=== PATIENT | female | born 1945 | race Caucasian/White ===

== ENCOUNTER 2022-07-01 11:23 | Inpatient (IN) ==
[2022-07-01] MEDS ORDERED: ACETAMINOPHEN 325 MG TABLET PO ONE (12:36)
[2022-07-01] MEDS ORDERED: ALBUTEROL 2.5 MG/3 ML NEB RESP TX STA (14:34)
[2022-07-01 14:37] LABS: Basophils # 0.1 10*3/uL (0.0-0.2); Basophils % 0.5 % (0.0-0.8); Eosinophils % 0.2 % (0.00-10.9); Hemoglobin 10.7 GM/DL (12.0-16.0); Immature Granulocytes % 0.6 %; Immature Granulocytes Absolute 0.07 #; Lymphocytes # 0.8 10*3/uL (1.4-4.0); Lymphocytes % 6.1 % (21.3-54.2); Mean Corpuscular HGB Conc 32.4 GM/DL (32-36); Mean Corpuscular Volume 90.9 FL (87-102); Mean Platelet Volume 11.1 FL (9.6-12.0); Monocytes # 1.2 10*3/uL (0.11-0.8); Monocytes % 9.5 % (1.7-12.7); Neutrophils % 83.1 % (38.7-73.9); Platelet Count 255 T/CUMM (130-400); Red Blood Count 3.63 MC/CUMM (3.8-5.5); Red Cell Distribution Width 13.6 % (9.3-17.3); White Blood Count 12.4 T/CUMM (4-12)
[2022-07-01 14:41] LABS: Bacteria,Urine Occasional /HPF (Few); Bilirubin,Urine Negative (Negative); Blood, Urine Negative (Negative); Glucose,Urine (UA) Negative (Negative); Hyaline Casts,Urine 3 /LPF (0-3); Ketones,Urine Trace mg/dL (Negative); Mucus,Urine Occasional /LPF (Occasional); Nitrite,Urine Negative (Negative); Protein,Urine 30 mg/dL (Negative); Squamous Epithelial Cell,Urine Occasional /HPF (0-10); Urine Appearance Clear (Clear); Urine Color Yellow (Yellow); Urine Specific Gravity 1.025 (1.001-1.035); Urine Urobilinogen 0.2 eU/dL (<2.0); Urine pH 5.5 (4.5-8.0)
[2022-07-01 14:58] LABS: Albumin 3.6 G/DL (3.4-5.0); Calcium 8.6 MG/DL (8.5-10.1); Osmolality,Calculated 266.5 MOS/KG (273-304); Potassium 3.1 MMOL/L (3.5-5.1); Total Protein 7.3 G/DL (6.4-8.2)
[2022-07-01] MEDS ORDERED: methylPREDNISolone SOD SUC 125 MG/2 ML VIAL IV STA (15:24)
[2022-07-01] MEDS ORDERED: SODIUM CHLORIDE 0.9% 1,000 ML IV STA (15:24)
[2022-07-01] MEDS ORDERED: HYDROcodone/HOMATROPINE 5 ML UDCUP PO ONE (15:25)
[2022-07-01 16:40] LABS: Band Neutrophils 2 % (0-10); Lymphocytes 4 % (20-55); Metamyelocytes 2 %; Platelet Estimate Normal; Total Cells Counted 100
[2022-07-01] MEDS ORDERED: HYDROcodone/CHLORPHENIRAMINE ER 5 ML UDCUP PO STA (16:46)
[2022-07-01] MEDS ORDERED: ONDANSETRON 4 MG/2 ML VIAL IV STA (17:13)
[2022-07-01] MEDS ORDERED: GLUCAGON 1 MG VIAL IM PRN (17:56)
[2022-07-01] MEDS ORDERED: hydrALAZINE 20 MG/1 ML VIAL IV PRN (17:56)
[2022-07-01] MEDS ORDERED: ONDANSETRON 4 MG/2 ML VIAL IV PRN (17:56)
[2022-07-01] MEDS ORDERED: DEXTROSE 10% 250 ML BAG IV PRN (18:16)
[2022-07-01] MEDS ORDERED: POTASSIUM CHLORIDE 20 MEQ TABLET PO ONE (18:55)
[2022-07-01] MEDS: INSULIN LISPRO 100 UNIT/ML SUBCUT SCH (19:03)
[2022-07-01] MEDS: LACTATED RINGERS 1,000 ML IV SCH (19:11)
[2022-07-01] MEDS: ALBUTEROL/IPRATROPIUM 3 ML NEB RESP TX SCH (20:45)
[2022-07-01] MEDS ORDERED: CARBIDOPA/LEVODOPA 25-100 MG TABLET PO PRN (21:00)
[2022-07-01] MEDS: cefTRIAXone 1,000 MG in SODIUM CHLORIDE 0.9% 100 ML IV SCH (21:03)
[2022-07-01] MEDS: ENOXAPARIN 40 MG/0.4 ML SYRINGE SUBCUT SCH (21:28)
[2022-07-01] MEDS: guaiFENesin/DM ER 600-30 MG TABLET PO PRN (23:09)
[2022-07-01] MEDS: AZITHROMYCIN INJ 500 MG in SODIUM CHLORIDE 0.9% 250 ML IV SCH (23:09)
[2022-07-01] MEDS ORDERED: BENZOCAINE/MENTHOL LOZENGE 18/BOX PO PRN (23:26)
[2022-07-01] MEDS: BENZONATATE 100 MG CAPSULE PO SCH (23:57)
[2022-07-02 02:24] LABS: Basophils % 0.2 % (0.0-0.8); Hemoglobin 9.4 GM/DL (12.0-16.0); Immature Granulocytes % 0.2 %; Immature Granulocytes Absolute 0.03 #; Lymphocytes # 0.7 10*3/uL (1.4-4.0); Lymphocytes % 5.9 % (21.3-54.2); Mean Corpuscular HGB Conc 31.3 GM/DL (32-36); Mean Corpuscular Volume 91.2 FL (87-102); Monocytes # 0.6 10*3/uL (0.11-0.8); Monocytes % 4.6 % (1.7-12.7); Neutrophils % 89.1 % (38.7-73.9); Platelet Count 201 T/CUMM (130-400); Red Blood Count 3.29 MC/CUMM (3.8-5.5); Red Cell Distribution Width 13.6 % (9.3-17.3); White Blood Count 12.1 T/CUMM (4-12)
[2022-07-02 02:48] LABS: Calcium 8.5 MG/DL (8.5-10.1); Osmolality,Calculated 267.5 MOS/KG (273-304)
[2022-07-02 03:11] LABS: Band Neutrophils 3 % (0-10); Hypochromia Slight; Lymphocytes 6 % (20-55); Microcytosis Slight; Platelet Estimate Adequate; Total Cells Counted 100
[2022-07-02] MEDS: methylPREDNISolone SOD SUC 40 MG/1 ML VIAL IV SCH ×2 (04:57→17:09)
[2022-07-02] MEDS: LEVOTHYROXINE 25 MCG TABLET PO SCH (06:00)
[2022-07-02] MEDS: INSULIN LISPRO 100 UNIT/ML SUBCUT SCH ×2 (08:47→17:14)
[2022-07-02] MEDS: LOSARTAN 50 MG TABLET PO SCH (08:47)
[2022-07-02] MEDS: LACTATED RINGERS 1,000 ML IV SCH ×2 (08:47→18:14)
[2022-07-02] MEDS: POTASSIUM CHLORIDE 20 MEQ TABLET PO SCH (08:48)
[2022-07-02] MEDS: DULoxetine 30 MG CAPSULE PO SCH (08:48)
[2022-07-02] MEDS: METOPROLOL SUCCINATE XL 25 MG TABLET PO SCH (08:48)
[2022-07-02] MEDS: PANTOPRAZOLE 40 MG TABLET PO SCH (08:48)
[2022-07-02] MEDS: BENZONATATE 100 MG CAPSULE PO SCH ×2 (08:48→21:02)
[2022-07-02] MEDS ORDERED: hydroCHLOROthiazide 25 MG TABLET PO SCH (09:00)
[2022-07-02] MEDS: ALBUTEROL/IPRATROPIUM 3 ML NEB RESP TX SCH (20:25)
[2022-07-02] MEDS: ENOXAPARIN 40 MG/0.4 ML SYRINGE SUBCUT SCH (21:02)
[2022-07-02] MEDS: SIMVASTATIN 20 MG TABLET PO SCH (21:02)
[2022-07-02] MEDS: cefTRIAXone 1,000 MG in SODIUM CHLORIDE 0.9% 100 ML IV SCH (21:02)
[2022-07-02] MEDS: AZITHROMYCIN INJ 500 MG in SODIUM CHLORIDE 0.9% 250 ML IV SCH (21:45)
[2022-07-03] MEDS: ALBUTEROL/IPRATROPIUM 3 ML NEB RESP TX SCH ×5 (01:36→19:14)
[2022-07-03] MEDS: methylPREDNISolone SOD SUC 40 MG/1 ML VIAL IV SCH ×2 (03:35→16:10)
[2022-07-03 05:24] LABS: Basophils % 0.1 % (0.0-0.8); Hematocrit 25.9 VOL% (35.7-47.0); Hemoglobin 8.2 GM/DL (12.0-16.0); Immature Granulocytes % 0.7 %; Immature Granulocytes Absolute 0.09 #; Lymphocytes # 1.5 10*3/uL (1.4-4.0); Lymphocytes % 11.9 % (21.3-54.2); Mean Corpuscular HGB Conc 31.7 GM/DL (32-36); Mean Corpuscular Volume 92.2 FL (87-102); Monocytes # 0.9 10*3/uL (0.11-0.8); Monocytes % 6.7 % (1.7-12.7); Neutrophils % 80.6 % (38.7-73.9); Platelet Count 193 T/CUMM (130-400); Red Blood Count 2.81 MC/CUMM (3.8-5.5); Red Cell Distribution Width 13.5 % (9.3-17.3); White Blood Count 12.7 T/CUMM (4-12)
[2022-07-03 05:51] LABS: Calcium 8.6 MG/DL (8.5-10.1); Potassium 3.5 MMOL/L (3.5-5.1)
[2022-07-03 05:59] LABS: Band Neutrophils 5 % (0-10); Lymphocytes 9 % (20-55); Metamyelocytes 1 %; Myelocytes 1 %; Total Cells Counted 100
[2022-07-03] MEDS: LEVOTHYROXINE 25 MCG TABLET PO SCH (05:59)
[2022-07-03 06:00] LABS: Microcytosis Slight; Ovalocytes Slight; Platelet Estimate Adequate
[2022-07-03] MEDS: LACTATED RINGERS 1,000 ML IV SCH ×2 (06:14→16:10)
[2022-07-03] MEDS: INSULIN LISPRO 100 UNIT/ML SUBCUT SCH ×2 (09:21→17:26)
[2022-07-03] MEDS: BENZONATATE 100 MG CAPSULE PO SCH ×2 (09:21→20:59)
[2022-07-03] MEDS: DULoxetine 30 MG CAPSULE PO SCH (09:21)
[2022-07-03] MEDS: POTASSIUM CHLORIDE 20 MEQ TABLET PO SCH (09:21)
[2022-07-03] MEDS: PANTOPRAZOLE 40 MG TABLET PO SCH (09:21)
[2022-07-03] MEDS: LOSARTAN 50 MG TABLET PO SCH (09:22)
[2022-07-03] MEDS: METOPROLOL SUCCINATE XL 25 MG TABLET PO SCH (09:22)
[2022-07-03] MEDS: SIMVASTATIN 20 MG TABLET PO SCH (20:58)
[2022-07-03] MEDS: ENOXAPARIN 40 MG/0.4 ML SYRINGE SUBCUT SCH (20:59)
[2022-07-03] MEDS: AZITHROMYCIN INJ 500 MG in SODIUM CHLORIDE 0.9% 250 ML IV SCH (21:02)
[2022-07-03] MEDS: cefTRIAXone 1,000 MG in SODIUM CHLORIDE 0.9% 100 ML IV SCH (22:00)
[2022-07-04] MEDS: ALBUTEROL/IPRATROPIUM 3 ML NEB RESP TX SCH ×4 (00:09→19:57)
[2022-07-04] MEDS: methylPREDNISolone SOD SUC 40 MG/1 ML VIAL IV SCH ×2 (03:29→17:18)
[2022-07-04] MEDS: LEVOTHYROXINE 25 MCG TABLET PO SCH (05:30)
[2022-07-04 06:26] LABS: Basophils % 0.1 % (0.0-0.8); Hematocrit 28.7 VOL% (35.7-47.0); Hemoglobin 8.9 GM/DL (12.0-16.0); Immature Granulocytes % 1.1 %; Immature Granulocytes Absolute 0.14 #; Lymphocytes # 1.4 10*3/uL (1.4-4.0); Lymphocytes % 11.8 % (21.3-54.2); Mean Corpuscular Volume 93.5 FL (87-102); Mean Platelet Volume 12.7 FL (9.6-12.0); Monocytes # 0.8 10*3/uL (0.11-0.8); Monocytes % 6.2 % (1.7-12.7); Neutrophils % 80.8 % (38.7-73.9); Platelet Count 254 T/CUMM (130-400); Red Blood Count 3.07 MC/CUMM (3.8-5.5); Red Cell Distribution Width 13.3 % (9.3-17.3); White Blood Count 12.2 T/CUMM (4-12)
[2022-07-04 06:57] LABS: Calcium 8.3 MG/DL (8.5-10.1); Osmolality,Calculated 278.5 MOS/KG (273-304); Potassium 3.4 MMOL/L (3.5-5.1)
[2022-07-04] MEDS: LACTATED RINGERS 1,000 ML IV SCH ×3 (07:09→17:17)
[2022-07-04 07:21] LABS: Anisocytosis 1+; Platelet Estimate Normal
[2022-07-04] MEDS: DULoxetine 30 MG CAPSULE PO SCH (09:12)
[2022-07-04] MEDS: INSULIN LISPRO 100 UNIT/ML SUBCUT SCH ×2 (09:12→17:04)
[2022-07-04] MEDS: BENZONATATE 100 MG CAPSULE PO SCH ×2 (09:12→20:30)
[2022-07-04] MEDS: METOPROLOL SUCCINATE XL 25 MG TABLET PO SCH (09:13)
[2022-07-04] MEDS: PANTOPRAZOLE 40 MG TABLET PO SCH (09:13)
[2022-07-04] MEDS: LOSARTAN 50 MG TABLET PO SCH (09:13)
[2022-07-04] MEDS: POTASSIUM CHLORIDE 20 MEQ TABLET PO SCH (09:13)
[2022-07-04] MEDS: guaiFENesin/DM ER 600-30 MG TABLET PO PRN (17:23)
[2022-07-04] MEDS: cefTRIAXone 1,000 MG in SODIUM CHLORIDE 0.9% 100 ML IV SCH (20:30)
[2022-07-04] MEDS: SIMVASTATIN 20 MG TABLET PO SCH (20:30)
[2022-07-04] MEDS: ENOXAPARIN 40 MG/0.4 ML SYRINGE SUBCUT SCH (20:30)
[2022-07-05] MEDS: ALBUTEROL/IPRATROPIUM 3 ML NEB RESP TX SCH ×4 (00:57→19:30)
[2022-07-05] MEDS: guaiFENesin/DM ER 600-30 MG TABLET PO PRN ×2 (00:59→21:11)
[2022-07-05] MEDS: methylPREDNISolone SOD SUC 40 MG/1 ML VIAL IV SCH ×3 (03:46→16:06)
[2022-07-05] MEDS: LEVOTHYROXINE 25 MCG TABLET PO SCH (06:23)
[2022-07-05] MEDS: BENZONATATE 100 MG CAPSULE PO SCH ×3 (08:57→21:11)
[2022-07-05] MEDS: PANTOPRAZOLE 40 MG TABLET PO SCH (08:57)
[2022-07-05] MEDS: LOSARTAN 50 MG TABLET PO SCH (08:57)
[2022-07-05] MEDS: DULoxetine 30 MG CAPSULE PO SCH (08:57)
[2022-07-05] MEDS: METOPROLOL SUCCINATE XL 25 MG TABLET PO SCH (08:58)
[2022-07-05] MEDS: POTASSIUM CHLORIDE 20 MEQ TABLET PO SCH (08:58)
[2022-07-05] MEDS: INSULIN LISPRO 100 UNIT/ML SUBCUT SCH ×2 (10:34→16:05)
[2022-07-05] MEDS: LACTATED RINGERS 1,000 ML IV SCH (17:35)
[2022-07-05] MEDS: SIMVASTATIN 20 MG TABLET PO SCH (21:11)
[2022-07-05] MEDS: AZITHROMYCIN INJ 500 MG in SODIUM CHLORIDE 0.9% 250 ML IV SCH ×2 (21:11)
[2022-07-05] MEDS: ENOXAPARIN 40 MG/0.4 ML SYRINGE SUBCUT SCH (21:12)
[2022-07-05] MEDS: cefTRIAXone 1,000 MG in SODIUM CHLORIDE 0.9% 100 ML IV SCH (22:00)
[2022-07-06] MEDS: methylPREDNISolone SOD SUC 40 MG/1 ML VIAL IV SCH ×2 (01:24→09:13)
[2022-07-06] MEDS: ALBUTEROL/IPRATROPIUM 3 ML NEB RESP TX SCH ×4 (01:30→19:30)
[2022-07-06] MEDS: LEVOTHYROXINE 25 MCG TABLET PO SCH (06:13)
[2022-07-06] MEDS: INSULIN LISPRO 100 UNIT/ML SUBCUT SCH ×2 (08:24→16:47)
[2022-07-06] MEDS: DULoxetine 30 MG CAPSULE PO SCH (09:12)
[2022-07-06] MEDS: PANTOPRAZOLE 40 MG TABLET PO SCH (09:12)
[2022-07-06] MEDS: METOPROLOL SUCCINATE XL 25 MG TABLET PO SCH (09:12)
[2022-07-06] MEDS: LOSARTAN 50 MG TABLET PO SCH (09:12)
[2022-07-06] MEDS: POTASSIUM CHLORIDE 20 MEQ TABLET PO SCH (09:12)
[2022-07-06] MEDS: BENZONATATE 100 MG CAPSULE PO SCH ×3 (09:13→20:13)
[2022-07-06] MEDS: LACTATED RINGERS 1,000 ML IV SCH (10:30)
[2022-07-06] MEDS: guaiFENesin/DM ER 600-30 MG TABLET PO PRN (20:13)
[2022-07-06] MEDS: AZITHROMYCIN INJ 500 MG in SODIUM CHLORIDE 0.9% 250 ML IV SCH (20:13)
[2022-07-06] MEDS: SIMVASTATIN 20 MG TABLET PO SCH (20:14)
[2022-07-06] MEDS: ENOXAPARIN 40 MG/0.4 ML SYRINGE SUBCUT SCH (20:14)
[2022-07-06] MEDS: cefTRIAXone 1,000 MG in SODIUM CHLORIDE 0.9% 100 ML IV SCH (21:39)
[2022-07-07] MEDS: ALBUTEROL/IPRATROPIUM 3 ML NEB RESP TX SCH ×2 (02:36→07:04)
[2022-07-07] MEDS: LEVOTHYROXINE 25 MCG TABLET PO SCH (06:09)
[2022-07-07] MEDS: DULoxetine 30 MG CAPSULE PO SCH (08:37)
[2022-07-07] MEDS: PANTOPRAZOLE 40 MG TABLET PO SCH (08:37)
[2022-07-07] MEDS: BENZONATATE 100 MG CAPSULE PO SCH (08:38)
[2022-07-07] MEDS: METOPROLOL SUCCINATE XL 25 MG TABLET PO SCH (08:38)
[2022-07-07] MEDS: LOSARTAN 50 MG TABLET PO SCH (08:38)
[2022-07-07] MEDS ORDERED: predniSONE 20 MG TABLET PO SCH (09:00)
[2022-07-07] MEDS: INSULIN LISPRO 100 UNIT/ML SUBCUT SCH (10:16)
[2022-07-07 12:19] VITALS: BP 144/74
== END 2022-07-07 13:46 | disposition home or self-care (01) | DRG 202 ==
LOC: N.ED 11:23 → N.3E 17:56 → SUATTDRO 17:56 → N.3E 22:00
PROVIDERS: ADMIT Family Medicine; ATTEND Hospitalist